=== PATIENT | male | born 1980 | race African-American/Black ===

== ENCOUNTER → 2023-08-07 | Outpatient (REF) | payer OTHER | LOC: M LAB REF 17:29 | PROVIDERS: ATTEND Internal Medicine Nephrology | DX: N18.2 Chronic kidney disease, stage 2 (mild) (principal) ==

== ENCOUNTER → 2023-09-18 | Outpatient (CLI) | payer OTHER | LOC: M RAD 10:56 | PROVIDERS: ATTEND Internal Medicine Nephrology | DX: N17.9 Acute kidney failure, unspecified (principal); N18.2 Chronic kidney disease, stage 2 (mild) ==

== ENCOUNTER → 2024-01-05 | Outpatient (REF) | payer OTHER ==
[2024-01-05 20:14] LABS: CREATININE,RANDOM URINE 189.8 MG/DL
[2024-01-05 20:19] LABS: TOTAL PROTEIN,RANDOM URINE < 6.0 MG/DL (0.0-14.0)
== END ==
LOC: M LAB REF 17:13
PROVIDERS: ATTEND Internal Medicine Nephrology
DX: N18.2 Chronic kidney disease, stage 2 (mild) (principal)

== ENCOUNTER → 2024-04-11 | Outpatient (REF) | LOC: M PLAIMG 13:09 | PROVIDERS: ATTEND Nurse Practitioner Family | DX: R06.02 Shortness of breath (principal) ==

== ENCOUNTER 2024-07-12 11:24 | Emergency (ER) | payer OTHER ==
[~2024-07-12] VITALS: Ht 180.3 cm; Wt 105.5 kg
[2024-07-12] MEDS ORDERED: JARD1TAB (11:36)
[2024-07-12] MEDS ORDERED: ESCITALOPRAM (11:36)
[2024-07-12] MEDS ORDERED: ATOR1TAB21 (11:36)
[2024-07-12] MEDS ORDERED: METF-838 (11:36)
[2024-07-12] MEDS ORDERED: SEMA2PEN (11:36)
[2024-07-12] MEDS ORDERED: LISI40TA4 (11:36)
[2024-07-12] MEDS ORDERED: REFR0.1D (11:36)
[2024-07-12] MEDS: ACETAMINOPHEN 500 MG TAB PO ONE (12:29)
[2024-07-12 14:24] LABS: HEMATOCRIT 37.2 % (42.0-52.0); HEMOGLOBIN 12.9 g/dl (13.5-17.5); MEAN CORPUSCULAR HGB CONC 34.7 g/dl (32.0-36.5); MEAN CORPUSCULAR VOLUME 86.5 fl (80.0-96.0); PLATELET COUNT, AUTOMATED 134 10^3/uL (150-450); WHITE BLOOD COUNT 3.1 10^3/uL (4.0-10.0)
[2024-07-12 14:39] LABS: ERYTHROCYTE SEDIMENTATION RATE 14 mm/hr (0-15)
[2024-07-12 14:48] LABS: ALBUMIN 3.8 G/DL (3.2-5.2); ALKALINE PHOSPHATASE 60 U/L (40-129); ALT/SGPT 46 U/L (7.0-40); AST/SGOT 47 U/L (<34); BILIRUBIN,TOTAL 0.7 MG/DL (0.3-1.2); BLOOD UREA NITROGEN 13 MG/DL (9-23); C REACTIVE PROTEIN QUANTITATIV 8.82 MG/DL (<1.0); CALCIUM LEVEL 9.4 MG/DL (8.5-10.1); CARBON DIOXIDE LEVEL 26 MMOL/L (20-31); CHLORIDE LEVEL 100 MMOL/L (98-107); CREATININE FOR GFR 0.99 MG/DL (0.70-1.30); GLOMERULAR FILTRATION RATE > 60.0 (>60); GLUCOSE, FASTING 136 MG/DL (60-100); POTASSIUM SERUM 3.4 MMOL/L (3.5-5.1); SODIUM LEVEL 133 MMOL/L (136-145); TOTAL PROTEIN 6.9 G/DL (5.7-8.2)
[2024-07-12 14:56] LABS: PROCALCITONIN 0.61 ng/ml
[2024-07-12] MEDS: NS (Normal Saline) 0.9% 1,000 ML IV ONE (15:02)
[2024-07-12] MEDS: IBUPROFEN 600MG TAB PO ONE (15:03)
[2024-07-12 15:27] LABS: ATYPICAL LYMPH 12 % (0-5); LYMPHOCYTES 23 % (16-44); MONOCYTES 2 % (0-5); NEUTROPHILS 56 % (28-66)
[2024-07-12 15:28] LABS: BILIRUBIN,DIRECT 0.2 MG/DL (<0.4); CPK CREATINE PHOSPHOKINASE 231 U/L (46-171); PLATELET ESTIMATE NORMAL (NORMAL)
[2024-07-12 15:45] LABS: MONO REFLEX EBV COMP NEGATIVE (NEGATIVE)
[2024-07-12 16:58] VITALS: BP 122/59; TEMP 98.8; O2SAT 98
[2024-07-15 14:26] LABS: EBV AB TO NUCLEAR ANTIGEN < 18.00 U/mL (<18.00); EBV VIRAL CAPSID AG IGG < 18.00 U/mL (<18.00); EBV VIRAL CAPSID AG IGM < 36.00 U/mL (<36.00)
[2024-07-17 15:57] LABS: LYME TOTAL ANTIBODY CIA <= 0.90 Index (<=0.90)
[2024-07-17 18:52] LABS: ROCKY MTN SPOTTED FEVER IGM Not Detected (Not Detected)
[2024-07-17 22:43] LABS: A PHAGOCYTOPHILUM AB IGG <1 (<1:64); EHRLICHIA CAFFEENSIS IGM <1:20 (<1:20)
== END 2024-07-12 17:10 | disposition home or self-care (01) ==
LOC: M ED 11:24
DX: R50.9 Fever, unspecified (principal); E11.9 Type 2 diabetes mellitus without complications; I10 Essential (primary) hypertension; Z79.02 Long term (current) use of antithrombotics/antiplatelets; Z79.811 Long term (current) use of aromatase inhibitors; Z79.4 Long term (current) use of insulin; Z79.899 Other long term (current) drug therapy